=== PATIENT | female | born 1935 | race Caucasian/White ===

== ENCOUNTER 2017-04-10 15:21 | Emergency (ER) | payer OTHER ==
[~2017-04-10] VITALS: Ht 152.4 cm; Wt 70.0 kg
[2017-04-10 15:34] VITALS: Ht 152.4 cm; Wt 70.0 kg
[2017-04-10] MEDS ORDERED: SOD CHLORIDE 0.9% 1,000 ML IV STA (16:41)
--- NOTE | 2017-04-10 17:24 | RADRPT ---
PROCEDURE: XR Chest. CLINICAL INDICATION: Shortness of breath. Altered mental status. TECHNIQUE: Single frontal view. COMPARISON: None. FINDINGS: The lungs are clear. The heart size is normal. There is no pleural effusion. There is no pneumothorax. IMPRESSION: 1. Normal chest radiograph. RPTAT: QQ .Rodrick Dan MD, MD Date Time Electronically viewed and signed by .Rodrick Dan MD, on 04/10/2017 17:23 .R/
[2017-04-10 17:35] LABS: WHITE BLOOD COUNT 7.4 10^3/ul (4.8-10.8)
[2017-04-10 17:36] LABS: BASOPHILS % 0.4 % (0.0-2.0); EOSINOPHILS # 0.2 10^3/ul (0.0-0.5); EOSINOPHILS % 2.3 % (0.0-7.0); HEMATOCRIT 35.7 % (37.0-47.0); HEMOGLOBIN 12.2 g/dl (12.0-16.0); LYMPHOCYTES # 2.2 10^3/ul (0.8-2.9); LYMPHOCYTES % 29.3 % (15.0-51.0); MEAN CORPUSCULAR HEMOGLOBIN 30.6 pg (29.0-33.0); MEAN CORPUSCULAR HGB CONC 34.2 g/dl (32.0-37.0); MEAN CORPUSCULAR VOLUME 89.5 fl (82.0-101.0); MEAN PLATELET VOLUME 10.3 fl (7.4-10.4); MONOCYTE # 0.4 10^3/ul (0.3-0.9); MONOCYTES % 4.8 % (0.0-11.0); NEUTROPHIL # 4.6 10^3/ul (1.6-7.5); NEUTROPHILS % 62.9 % (39.0-77.0); PLATELET COUNT 243 10^3/UL (140-415); RED BLOOD COUNT 3.99 10^6/ul (4.20-5.40); RED CELL DISTRIBUTION WIDTH 13.9 % (11.5-14.5)
[2017-04-10 17:41] LABS: ADD UMIC YES; UR ASCORBIC ACID NEGATIVE (NEGATIVE); UR BILIRUBIN (Dip) NEGATIVE (NEGATIVE); UR BLOOD (Dip) 1+ mg/dL (NEGATIVE); UR CLARITY CLEAR (CLEAR); UR COLOR YELLOW (YELLOW); UR GLUCOSE (Dip) NEGATIVE (NEGATIVE); UR KETONES (Dip) NEGATIVE (NEGATIVE); UR LEUKOCYTE ESTERASE (Dip) 1+ Leu/ul (NEGATIVE); UR NITRITE (Dip) NEGATIVE (NEGATIVE); UR RBC 0 /HPF (0-5); UR SPECIFIC GRAVITY (Dip) 1.009 (1.003-1.030); UR TOTAL PROTEIN (Dip) NEGATIVE (NEGATIVE); UR UROBILINOGEN (Dip) NEGATIVE (NEGATIVE)
[2017-04-10 17:54] LABS: BARBITURATES Negative (NEGATIVE); BENZODIAZEPINES Negative (NEGATIVE); CANNABINOIDS Negative (NEGATIVE); COCAINE Negative (NEGATIVE); OPIATES Negative (NEGATIVE)
--- NOTE | 2017-04-10 18:05 | RADRPT ---
PROCEDURE: CT Brain without contrast. CLINICAL INDICATION: Altered mental status. TECHNIQUE: A CT of the brain without contrast was performed utilizing axial sections from the skul l base through the vertex. The patient was scanned without intravenous contrast enhancement. Sagitta l and coronal reformatted images were obtained using the data from the axial images. Total exam DLP is 720.23 mGy-cm. CTDIvol is 43.58 mGy. One or more of the following dose reduction techniques were used: Automated exposure control, adjustment of the mA and/or kV according to patient size, use of iterative reconstruction technique. COMPARISON: None available. FINDINGS: There is normal escamilla-white matter differentiation. There is enlargement of the ventricles and subarachnoid spaces consistent with atrophy. There is decreased attenuation of the periventricular white matter consistent with microangiopathic ischemic change. There is no intracranial hemorrhage or space-occupying lesion. There are vascular calcifications consistent with atherosclerosis. There is no skull fracture or lytic lesion. IMPRESSION: 1. Atrophy. 2. Microangiopathic ischemic change. 3. Atherosclerosis. 4. Otherwise unremarkable noncontrast CT scan of the brain. RPTAT: QQ .Rodrick Dan MD, Date Time Electronically viewed and signed by .Rodrick Dan MD, MD on 04/10/2017 18:05 .R/
[2017-04-10 18:06] LABS: ALBUMIN 4.3 g/dl (3.3-4.9); ALBUMIN/GLOBULIN RATIO 1.26; BILIRUBIN,INDIRECT 0.7 mg/dl (0-1.1); BILIRUBIN,TOTAL 0.7 mg/dl (0.2-1.3); CREATININE 0.71 mg/dl (0.44-1.00); POTASSIUM 4.3 mmol/L (3.5-5.1); TOTAL PROTEIN 7.7 g/dl (6.1-8.1)
--- NOTE | 2017-04-10 18:52 | ERA ---
ER Documentation Chief Complaint Date/Time DATE: 04/10/17 TIME: 18:38 Chief Complaint bibr60 co acute confutuion per son after watching the new and being sad HPI This is an 82-year-old female here for acute confusion. The patient has a history of depression and states that she tends to take on the problems of the world. She says lately she has been very upset about the tragedy in [place] is her [place]. The family is here with her and states that today, the patient suddenly did not recognize her own family members. The patient did not recognize her sons order other family members. She did not know their names. The patient's states that she does not even know her name or her birthday but does recall some long-term memory events. Patient states she is not suicidal or homicidal and has had no trauma or fall.. The patient states she has a mild diffuse headache but no other symptoms such as numbness weakness speech change visual change fever cough nausea vomiting diarrhea dysuria.. The patient has been talking about plans that she has to do with her who has been for 40 years ROS All systems reviewed and are negative except as per history of present illness. Allergies Allergies: Coded Allergies: No Known Allergy (Unverified , 04/10/17) PMhx/Soc Hx Psychiatric Problems: Yes (depression ) Hx Alcohol Use: No Hx Substance Use: No Hx Tobacco Use: No Smoking Status: Never smoker FmHx Family History: No coronary disease Physical Exam Vitals Vital Signs Date Time Temp Pulse Resp B/P Pulse Ox O2 Delivery O2 Flow Rate FiO2 04/10/17 18:36 98.7 84 14 136/76 96 Room Air 04/10/17 15:34 97.8 76 18 150/66 98 Physical Exam Const: Well-developed, well-nourished Head: Atraumatic, normocephalic Eyes: Normal Conjunctiva, PERRLA, EOMI, normal sclera, no nystagmus ENT: Normal External Ears, Nose and Mouth, moist mucus membranes. Neck: Full range of motion. No meningismus, no lymphadenopathy. Resp: Clear to auscultation bilaterally, no wheezing, rhonchi, rales Cardio: Regular rate and rhythm, no murmurs, S1 S2 present Abd: Soft, non tender x 4, non distended. Normal bowel sounds, no guarding or rebound, no pulsitile abdominal masses or bruits Skin: No petechiae or rashes, no ecchymosis , no maculopapular rash Back: No midline or flank tenderness Ext: No cyanosis, or edema, FROM x 4, normal inspection, neurovascularly intact x 4 Neur: Awake and alert, STR 5/5 x 4, sensation intact x 4, no focal findings, cerebellum intact, the patient does not know her name, birthday, and she knew the name of 1 of her sons but thought her other son was a longtime friend., She did not know that she is in a hospital., She said she has no idea of the date, she denies any auditory or visual hallucinations Psych: Normal Mood and Affect Result Diagram: 04/10/17 1710 04/10/17 1710 Results 24 hrs Laboratory Tests Test 04/10/17 17:10 04/10/17 17:20 White Blood Count 7.410^3/ul Red Blood Count 3.9910^6/ul Hemoglobin 12.2g/dl Hematocrit 35.7% Mean Corpuscular Volume 89.5fl Mean Corpuscular Hemoglobin 30.6pg Mean Corpuscular Hemoglobin Concent 34.2g/dl Red Cell Distribution Width 13.9% Platelet Count 80804^3/UL Mean Platelet Volume 10.3fl Neutrophils % 62.9% Lymphocytes % 29.3% Monocytes % 4.8% Eosinophils % 2.3% Basophils % 0.4% Nucleated Red Blood Cells % 0.0/100WBC Neutrophils # 4.610^3/ul Lymphocytes # 2.210^3/ul Monocytes # 0.410^3/ul Eosinophils # 0.210^3/ul Basophils # 0.010^3/ul Nucleated Red Blood Cells # 0.010^3/ul Sodium Level 142mmol/L Potassium Level 4.3mmol/L Chloride Level 110mmol/L Carbon Dioxide Level 24mmol/L Anion Gap 12 Blood Urea Nitrogen 17mg/dl Creatinine 0.71mg/dl Glucose Level 101mg/dl Calcium Level 9.0mg/dl Total Bilirubin 0.7mg/dl Direct Bilirubin 0.00mg/dl Indirect Bilirubin 0.7mg/dl Aspartate Amino Transf (AST/SGOT) 31IU/L Alanine Aminotransferase (ALT/SGPT) 36IU/L Alkaline Phosphatase 124IU/L Total Protein 7.7g/dl Albumin 4.3g/dl Globulin 3.40g/dl Albumin/Globulin Ratio 1.26 Urine Color YELLOW Urine Clarity CLEAR Urine pH 5.0 Urine Specific Pinson 1.009 Urine Ketones NEGATIVEmg/dL Urine Nitrite NEGATIVEmg/dL Urine Bilirubin NEGATIVEmg/dL Urine Urobilinogen NEGATIVEmg/dL Urine Leukocyte Esterase 1+Geri/ul Urine Microscopic RBC 0/HPF Urine Microscopic WBC 14/HPF Urine Hemoglobin 1+mg/dL Urine Glucose NEGATIVEmg/dL Urine Total Protein NEGATIVEmg/dl Urine Opiates Screen Negative Urine Barbiturates Negative Urine Amphetamines Screen Negative Urine Benzodiazepines Screen Negative Urine Cocaine Screen Negative Urine Cannabinoids Negative Current Medications Medications (Trade) Dose Ordered Sig/[place]kin Route PRN Reason Start Time Stop Time Status Last Admin Dose Admin Sodium Chloride (NS) 1,000 ml @ 1,000 mls/hr Q1H STAT IV 04/10/17 16:41 04/10/17 17:40 DC 04/10/17 16:41 Procedures/MDM EKG: Rate/Rhythm: Normal sinus rhythm with premature supraventricular complexes QRS, ST, QT: NORMAL NV, QRS, QT] Impression: [Borderline EKG PROCEDURE: CT Brain without contrast. CLINICAL INDICATION: Altered mental status. TECHNIQUE: A CT of the brain without contrast was performed utilizing axial sections from the skull base through the vertex. The patient was scanned without intravenous contrast enhancement. Sagittal and coronal reformatted images were obtained using the data from the axial images. Total exam DLP is 720.23 mGy-cm. CTDIvol is 43.58 mGy. One or more of the following dose reduction techniques were used: Automated exposure control, adjustment of the mA and/or kV according to patient size, use of iterative reconstruction technique. COMPARISON: None available. FINDINGS: There is normal escamilla-white matter differentiation. There is enlargement of the ventricles and subarachnoid spaces consistent with atrophy. There is decreased attenuation of the periventricular white matter consistent with microangiopathic ischemic change. There is no intracranial hemorrhage or space-occupying lesion. There are vascular calcifications consistent with atherosclerosis. There is no skull fracture or lytic lesion. IMPRESSION: 1. Atrophy. 2. Microangiopathic ischemic change. 3. Atherosclerosis. 4. Otherwise unremarkable noncontrast CT scan of the brain. RPTAT: QQ .Rodrick Dan MD, Date Time Electronically viewed and signed by .Rodrick Dan MD, MD on 04/10/2017 18:05 .R/ CC: ILYA ESCOBEDO DO PROCEDURE: XR Chest. CLINICAL INDICATION: Shortness of breath. Altered mental status. TECHNIQUE: Single frontal view. COMPARISON: None. FINDINGS: The lungs are clear. The heart size is normal. There is no pleural effusion. There is no pneumothorax. IMPRESSION: 1. Normal chest radiograph. RPTAT: QQ .Rodrick Dan MD, MD Date Time Electronically viewed and signed by .Rodrick Dan MD, on 04/10/2017 17:23 .R/ CC: ILYA ESCOBEDO DO No clear organic cause of this patient's altered mental status and memory loss. CAT scan of brain is unremarkable, there is a slight UTI with 14 white cells in the urine. White blood count is normal. The patient will need to be admitted to the hospital/transferred back to [place] because of this sudden acute confusion. She will need MRI to rule out any cerebrovascular accident/further workup will be needed. Departure Diagnosis: Primary Impression: Altered mental status Qualified Code: R41.82 - Altered mental status, unspecified altered mental status type Condition: Stable ILYA ESCOBEDO DO Apr 10, 2017 18:50
[2017-04-10 20:12] VITALS: BP 147/69; PULSE 65; RESP 16; TEMP 98.6
== END 2017-04-10 20:54 | disposition short-term general hospital (02) ==
LOC: E/R 15:21
DX: R41.82 Altered mental status, unspecified (principal); R06.02 Shortness of breath
CPT/HCPCS: 70450; 71010; 80053; 80307; 81001; 85025; 93005; 99285; J7030